=== PATIENT | male | born 1970 | race Caucasian/White ===

== ENCOUNTER 2024-03-21 08:26 | Emergency (ER) | payer OTHER ==
[~2024-03-21] VITALS: Ht 172.7 cm; Wt 90.9 kg
[2024-03-21 08:33] VITALS: TEMP 98.2
[2024-03-21 09:10] VITALS: BP 137/79; PULSE 89; RESP 17; O2SAT 99
== END 2024-03-21 14:06 | disposition home or self-care (01) ==
LOC: EMS 08:26
DX: M25.562 Pain in left knee (principal)
CPT/HCPCS: 99283